=== PATIENT | male | born 1995 | race Caucasian/White ===

== ENCOUNTER 2023-04-08 05:49 | Emergency (ER) | payer SELFPAY ==
[~2023-04-08] VITALS: Ht 177.8 cm; Wt 81.6 kg
[2023-04-08 05:51] VITALS: BP 135/80; PULSE 119; RESP 16; TEMP 97.4; O2SAT 100
[2023-04-08 06:04] VITALS: BP 135/80; PULSE 119; RESP 16; TEMP 97.4; O2SAT 100
== END 2023-04-08 05:54 | disposition home or self-care (01) ==
LOC: MED 05:49
DX: Z02.89 Encounter for other administrative examinations (principal); V89.2XXA Person injured in unspecified motor-vehicle accident, traffic, initial encounter; Y93.89 Activity, other specified; Y92.410 Unspecified street and highway as the place of occurrence of the external cause; Y99.8 Other external cause status
CPT/HCPCS: 99283